=== PATIENT | female | born 1955 | race Caucasian/White ===

== ENCOUNTER 2016-09-22 13:57 | Emergency (ER) | payer OTHER ==
--- NOTE | 2016-09-22 17:04 | ED ---
Abdominal Pain/Female - HPI Summary HPI Summary: 60F presents with abdominal pain and fever for 4 days. She states that her symptoms started with a fever and then she develop diarrhea. She denies any nausea or vomiting. She denies anyone else being sick. She states that she has had a normal BM today and that she is feeling better. She denies anyone else being sick. She denies any previous abdominal surgeries. she has been on a course of antibiotics recently for a tooth ache but does not remember the name. She was seen at her PCP today and told that she has a low heart rate so was sent her for further work up. She also admits to occasionally blood in her urine but denies any frequency, flank pain, urgency, or dysuria. - History of Current Complaint Chief Complaint: EDAbdPain Stated Complaint: LOW HEART RATE , RIGHT ABD PAIN Time Seen by Provider: 09/22/16 16:38 Pain Intensity: 7 Allergies/Adverse Reactions: Allergies Allergy/AdvReac Type Severity Reaction Status Date / Time Penicillins Allergy Intermediate Hives Verified 09/22/16 13:58 Antihistamines, Allergy Anxiety Verified 09/22/16 17:17 Diphenhydramine-typ PMH/Surg Hx/FS Hx/Imm Hx Endocrine/Hematology History: Denies: Hx Anticoagulant Therapy, Hx Diabetes Respiratory History: Denies: Hx Asthma - Cancer History Cancer Type, Location and Year: cervical cancer (24 yrs ago) - Surgical History Surgery Procedure, Year, and Place: for cervical ca - not hysterectomy Infectious Disease History: Denies: History Other Infectious Disease, Traveled Outside the [place] in Last 30 Days - Family History Known Family History: Positive: Other - NONCONTIBUTORY - Social History Alcohol Use: Rare Substance Use Type: Reports: None Smoking Status (MU): Never Smoked Tobacco Review of Systems Negative: Fever Negative: Chest Pain Negative: Shortness Of Breath Positive: Abdominal Pain, Diarrhea. Negative: Vomiting, Nausea All Other Systems Reviewed And Are Negative: Yes Physical Exam Triage Information Reviewed: Yes Vital Signs On Initial Exam: Initial Vitals Temp Pulse Resp BP Pulse Ox 97.8 F 85 16 123/69 99 09/22/16 13:58 09/22/16 13:58 09/22/16 13:58 09/22/16 13:58 09/22/16 13:58 Vital Signs Reviewed: Yes Appearance: Positive: Well-Appearing Skin: Positive: Warm, Dry Head/Face: Positive: Normal Head/Face Inspection Eyes: Positive: Normal, EOMI, MATTHIEU, Conjunctiva Clear ENT: Positive: Normal ENT inspection, Pharynx normal, TMs normal Respiratory/Lung Sounds: Positive: Clear to Auscultation, Breath Sounds Present Cardiovascular: Positive: Normal, RRR Abdomen Description: Positive: Soft, Other: - mild diffusely tender abdomen Bowel Sounds: Positive: Present Diagnostics - Vital Signs Vital Signs Temp Pulse Resp BP Pulse Ox 09/22/16 15:52 97.6 F 86 16 108/62 99 09/22/16 13:58 97.8 F 85 16 123/69 99 - Laboratory Result Diagrams: 09/22/16 17:02 09/22/16 17:02 Lab Statement: Any lab studies that have been ordered have been reviewed, and results considered in the medical decision making process. - CT abd CT Interpretation: Positive (See Comments) - IMPRESSION: 1. DIFFUSE THICKENING OF THE WALL OF THE COLON MOST CONSISTENT WITH COLITIS. 2. THE APPENDIX IS NOT WELL-DEFINED ON THIS STUDY. 3. SMALL LOW SUSPICION CYSTIC LESION IN THE TAIL OF THE PANCREAS. RECOMMEND A FOLLOW-UP MRI OF THE PANCREAS WITHOUT AND WITH CONTRAST FOR FURTHER EVALUATION. CT Interpretation Completed By: Radiologist - EKG No standard instances Cardiac Rate: NL EKG Rhythm: Sinus Rhythm ST Segment: Normal Abdominal Pain Fem Course/Dx - Course Course Of Treatment: 60F presents with abdominal pain and fever for 4 days. She states that her symptoms started with a fever and then she develop diarrhea. She denies any nausea or vomiting. She denies anyone else being sick. She states that she has had a normal BM today and that she is feeling better. She denies anyone else being sick. She denies any previous abdominal surgeries. she has been on a course of antibiotics recently for a tooth ache but does not remember the name. on exam is diffusely tender abdomen. labs normal wbc and electrolytes. ct shows colitis. unable to give us a stool sample can use for c difficle. urine no infection but is blood. normally treat colitis with cipro but due to recent antiobitic use will add flagyl in case of c diff infection. ekg normal here. patient understands and agrees with plan. - Diagnoses Differential Diagnosis: Positive: Diverticulitis, Other - c difficile, colitis Provider Diagnoses: Colitis Discharge - Discharge Plan Condition: Good Disposition: HOME Prescriptions: Ciprofloxacin TAB* [Cipro 500 MG TAB*] 500 mg PO BID #19 tab Metronidazole [Flagyl 500 MG TAB] 500 mg PO BID #19 tab Patient Education Materials: Colitis (ED) Referrals: Jeromy Valle NP [Primary Care Provider] - Additional Instructions: Take ciprofloxacin twice a day for 10 days, first dose given in ED Take Flagyl twice a day for 10 days, first dose given in ED Return to ED if unable to keep anything down or any new or worsening symptoms
[2016-09-22] MEDS: NS 0.9% 1000 ML* 2,000 ML IV ONE ×2 (17:09→18:23)
[2016-09-22 17:14] LABS: Hematocrit 38 % (35-47); Hemoglobin 12.9 g/dl (12.0-16.0); Mean Corpuscular HGB Conc 34 g/dl (31-36); Mean Corpuscular Hemoglobin 31 pg (27-31); Mean Corpuscular Volume 92 fL (80-97); Mean Platelet Volume 8 um3 (7.4-10.4); Red Blood Count 4.12 10^6/ul (4.0-5.4); Red Cell Distribution Width 13 % (10.5-15); White Blood Count 6.8 10^3/ul (3.5-10.8)
[2016-09-22 17:18] LABS: Urine Bacteria Absent (Absent); Urine Bilirubin Negative (Negative); Urine Glucose Negative (Negative); Urine Nitrite Negative (Negative)
[2016-09-22 17:31] LABS: Albumin 4.2 g/dL (3.2-5.2); BUN/Creatinine Ratio 15.6 (8-20); Calcium 9.5 mg/dL (8.6-10.3); EGFR African American 122.6 (>60); EGFR Non-African American 95.3 (>60); Globulin 2.8 g/dL (2-4); Potassium 3.8 mmol/L (3.5-5.0); Total Bilirubin 0.4 mg/dL (0.2-1.0)
[2016-09-22] MEDS ORDERED: Iohexol 300* (CONTRAST) 10 ML SDV IV ONE (18:23)
--- NOTE | 2016-09-22 19:49 | RAD ---
INDICATION: Right lower quadrant abdominal pain, diarrhea and vomiting. COMPARISON: There are no prior studies available for comparison. TECHNIQUE: A CT scan of the abdomen and pelvis was performed with intravenous and oral contrast following intravenous injection of 72 ml of Omnipaque 300 nonionic contrast. Contiguous axial sections were obtained from the lung bases through the symphysis pubis. Images were reconstructed in the coronal and sagittal planes. FINDINGS: The lung bases are clear. No pleural effusion is present. The liver and spleen are normal in size without significant focal abnormality. No calcified gallstones are seen. There is a small cystic lesion present within the tail of the pancreas measuring 1.0 x 0.7 cm in size. No pancreatic ductal distention is seen. The kidneys and adrenal glands are normal in size. No hydronephrosis is seen. There is a small subcentimeter cyst in the lower pole of the right kidney. The aorta is normal in caliber and demonstrates homogeneous contrast opacification. No significant enlarged retroperitoneal lymph nodes are seen. The stomach, small and large bowel appear nondistended. There is diffuse thickening of the wall of the colon which is most prominent in the ascending and sigmoid colon regions most consistent with colitis. The appendix is not well-defined. The uterus is retroverted in position and normal in size although not well-defined on this study. No free intraperitoneal air or fluid is seen. No significant focal osseous abnormality is seen. IMPRESSION: 1. DIFFUSE THICKENING OF THE WALL OF THE COLON MOST CONSISTENT WITH COLITIS. 2. THE APPENDIX IS NOT WELL-DEFINED ON THIS STUDY. 3. SMALL LOW SUSPICION CYSTIC LESION IN THE TAIL OF THE PANCREAS. RECOMMEND A FOLLOW-UP MRI OF THE PANCREAS WITHOUT AND WITH CONTRAST FOR FURTHER EVALUATION.
[2016-09-22] MEDS ORDERED: metroNIDAZOLE TAB* 250 MG PO ONE (20:13)
[2016-09-22] MEDS ORDERED: Ciprofloxacin TAB* 500 MG PO ONE (20:13)
[2016-09-22 20:18] VITALS: BP 114/68
== END 2016-09-22 20:30 | disposition home or self-care (01) ==
LOC: ED 13:57
DX: K52.9 Noninfective gastroenteritis and colitis, unspecified (principal); R10.9 Unspecified abdominal pain
CPT/HCPCS: 36415; 74177; 80053; 81003; 81015; 83605; 83690; 85025; 86141; 86703; 93005; 96360; 99283; A9270-GY; Q9967

== ENCOUNTER 2016-11-02 17:31 | Emergency (ER) | payer OTHER ==
[2016-11-02 18:00] VITALS: BP 117/70
--- NOTE | 2016-11-02 18:33 | RAD ---
INDICATION: Right rib injury. COMPARISON: Comparison is made with a prior chest x-ray study from May 04, 2015. TECHNIQUE: 2 views of the right ribs and dual-energy PA views of the chest were obtained. FINDINGS: There is an old fracture of the right second rib. No acute fracture is seen. The heart is within normal limits in size. The lungs are clear. There is no evidence for pneumothorax or pleural effusion. IMPRESSION: NO EVIDENCE FOR ACUTE FRACTURE.
--- NOTE | 2016-11-02 22:13 | ED ---
Back Pain - HPI Summary HPI Summary: Patient presents to the with right rib pain after falling while hiking. She states she fell onto her right side and the right part of her rib hit a rock. She notes to 8/10 pain constant and throbbing. Denies SOB. Denies other symptoms including back pain, arm pain. Denies hitting her head or LOC. Has not tried to take any medications. - History of Current Complaint Hx Obtained From: Patient Hx Last Menstrual Period: n/a Onset/Duration: Sudden Onset Onset/Duration: Started Hours Ago Timing: Constant Back Pain Location: Is Discrete @ - right mid rib Severity Initially: Moderate Severity Currently: Moderate Pain Intensity: 5 Pain Scale Used: 0-10 Numeric Character: Aching Aggravating Symptom(s): Movement, Walking, Cough Alleviating Symptom(s): Rest, Position Associated Signs And Symptoms: Negative: Bladder Incontinence, Bowel Incontinence - Risk Factors AAA Risk Factors: Negative <Pauline Swan - Last Filed: 11/02/16 22:09> <Kathi Arellano - Last Filed: 11/02/16 22:35> - History of Current Complaint Chief Complaint: UCChestPain Stated Complaint: RIGHT RIB PAIN Time Seen by Provider: 11/02/16 18:20 - Allergies/Home Medications Allergies/Adverse Reactions: Allergies Allergy/AdvReac Type Severity Reaction Status Date / Time Penicillins Allergy Intermediate Hives Verified 11/02/16 18:00 Antihistamines, Allergy Anxiety Verified 11/02/16 18:00 Diphenhydramine-typ PMH/Surg Hx/FS Hx/Imm Hx Previously Healthy: Yes Endocrine/Hematology History: Denies: Hx Anticoagulant Therapy, Hx Diabetes Respiratory History: Denies: Hx Asthma - Cancer History Cancer Type, Location and Year: cervical cancer (24 yrs ago) - Surgical History Surgery Procedure, Year, and Place: for cervical ca - not hysterectomy - Immunization History Hx Pertussis Vaccination: No Immunizations Up to Date: Unable to Obtain/Confirm Infectious Disease History: No Infectious Disease History: Denies: History Other Infectious Disease, Traveled Outside the [place] in Last 30 Days - Family History Known Family History: Positive: Other - NONCONTIBUTORY - Social History Occupation: Employed Full-time Lives: With Family Alcohol Use: Rare Hx Substance Use: No Substance Use Type: Reports: None Hx Tobacco Use: No Smoking Status (MU): Never Smoked Tobacco <Pauline Swan - Last Filed: 11/02/16 22:09> Review of Systems Constitutional: Negative Negative: Fever, Chills, Fatigue Eyes: Negative Cardiovascular: Negative Respiratory: Negative Positive: Shortness Of Breath, Cough Gastrointestinal: Negative Positive: no symptoms reported, see HPI Positive: Arthralgia Skin: Negative Neurological: Negative Psychological: Normal All Other Systems Reviewed And Are Negative: Yes <Pauline Swan - Last Filed: 11/02/16 22:09> Physical Exam Triage Information Reviewed: Yes Vital Signs On Initial Exam: Initial Vitals Temp Pulse Resp BP Pulse Ox 98.3 F 84 16 117/70 100 11/02/16 17:55 11/02/16 17:55 11/02/16 17:55 11/02/16 17:55 11/02/16 17:55 Vital Signs Reviewed: Yes Appearance: Positive: Well-Appearing, Well-Nourished Skin: Positive: Warm, Skin Color Reflects Adequate Perfusion Head/Face: Positive: Normal Head/Face Inspection Neck: Positive: Supple, Nontender, No Lymphadenopathy Respiratory/Lung Sounds: Positive: Clear to Auscultation, Breath Sounds Present Cardiovascular: Positive: Normal, RRR, Pulses are Symmetrical in both Upper and Lower Extremities Musculoskeletal: Positive: Pain @ - right middle ribs Neurological: Positive: Sensory/Motor Intact, Alert, Oriented to Person Place, Time Psychiatric: Positive: Normal AVPU Assessment: Alert <Pauline Swan - Last Filed: 11/02/16 22:09> Vital Signs On Initial Exam: Initial Vitals Temp Pulse Resp BP Pulse Ox 98.3 F 84 16 117/70 100 11/02/16 17:55 11/02/16 17:55 11/02/16 17:55 11/02/16 17:55 11/02/16 17:55 <Kathi Arellano - Last Filed: 11/02/16 22:35> Diagnostics - Vital Signs Vital Signs Temp Pulse Resp BP Pulse Ox 11/02/16 17:55 98.3 F 84 16 117/70 100 <Pauline Swan - Last Filed: 11/02/16 22:09> - Vital Signs Vital Signs Temp Pulse Resp BP Pulse Ox 11/02/16 17:55 98.3 F 84 16 117/70 100 <Kathi Arellano Last Filed: 11/02/16 22:35> Back Pain Course/Dx - Course Course Of Treatment: Xray negative for rib fracture. She is given a note for work. Encouraged ibuprofen 600mg three times daily and other care parameters given. She is Ok with discharge and will return if any symptoms worsen. - Diagnoses Differential Diagnosis/HQI/PQRI: Positive: Strain, Sprain, Other - rib fracture <Pauline Swan - Last Filed: 11/02/16 22:09> <Kathi Arellano - Last Filed: 11/02/16 22:35> - Diagnoses Provider Diagnoses: Rib contusion Discharge <Pauline Swan - Last Filed: 11/02/16 22:09> <Kathi Arellano - Last Filed: 11/02/16 22:35> - Discharge Plan Condition: Stable Disposition: HOME Patient Education Materials: Rib Contusion (ED) Forms: *Work Release Referrals: Jeromy Valle FAMILY RESOURCE MANAGEMENT SPECIALIST [Primary Care Provider] - Additional Instructions: Ibuprofen 600mg three times daily Moist heat to the area several times per day Rest OFF work If symptoms worsen, return to the [facility] Attestation Statement User Type: Provider - I was available for consult. This patient was seen by the [facility]. The patient was not presented to, seen by, or examined by me. -Milagros <Kathi Arellano - Last Filed: 11/02/16 22:35>
== END 2016-11-02 18:56 | disposition home or self-care (01) ==
LOC: UCCORT 17:31
DX: S20.211A Contusion of right front wall of thorax, initial encounter (principal); W19.XXXA Unspecified fall, initial encounter; Y93.01 Activity, walking, marching and hiking; Y92.9 Unspecified place or not applicable; Z85.41 Personal history of malignant neoplasm of cervix uteri; Z88.0 Allergy status to penicillin
CPT/HCPCS: 99211; G0463

== ENCOUNTER 2017-08-24 08:52 | Emergency (ER) | payer OTHER ==
[2017-08-24 09:03] VITALS: BP 115/72
--- NOTE | 2017-08-24 09:46 | RAD ---
HISTORY: fall, pain wrist deformity COMPARISONS: None VIEWS: 3, Frontal, lateral, and oblique views of the left wrist FINDINGS: BONE DENSITY: Normal. BONES: There is a dorsally angulated fracture of the distal radial metaphysis. There is approximately 40 degrees of dorsal angulation. There is a nondisplaced fracture of the styloid process of the ulna. 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 ALIGNMENT: There is no dislocation. SOFT TISSUES: Unremarkable. OTHER FINDINGS: None. IMPRESSION: DORSALLY ANGULATED FRACTURE OF THE DISTAL RADIAL METAPHYSIS. NONDISPLACED FRACTURE OF THE STYLOID PROCESS OF THE ULNA.
--- NOTE | 2017-08-24 10:20 | UC ---
Upper Extremity HPI - HPI Summary HPI Summary: Patient is a 61-year-old female presenting to the after a FOOSH injury onto her left arm. 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 There is an obvious deformity noted in the wrist. Denies any erythema, ecchymosis or temperature changes, however endorses feeling of numbness and tingling into the thumb and first finger. She endorses a 2/10 pain. Aggravated with nothing and alleviated with nothing. 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 - History of Current Complaint Chief Complaint: UCUpperExtremity Stated Complaint: WRIST INJURY Time Seen by Provider: 08/24/17 09:53 Hx Obtained From: Patient Hx Last Menstrual Period: n/a ?: No Onset/Duration: Sudden Onset Severity Initially: Moderate Severity Currently: Moderate Pain Intensity: 2 Pain Scale Used: 0-10 Numeric Location Of Pain: Is Discrete @ - left wrist Character: Aching Aggravating Factor(s): Movement, Lifting, Flexion, Extension Alleviating Factor(s): Nothing Associated Signs And Symptoms: Positive: Numbness/Tingling Related History: Dominant Hand Right - Risk Factors Non-Orthopedic Risk Factor: Negative DVT Risk Factors: Negative Septic Arthritis Risk Factor: Negative Compartment Syndrome Risk Factors: Pain - Allergies/Home Medications Allergies/Adverse Reactions: Allergies Allergy/AdvReac Type Severity Reaction Status Date / Time Penicillins Allergy Hives Verified 08/24/17 09:05 antihistamines Allergy Mild See Comment Uncoded 08/24/17 09:05 PMH/Surg Hx/FS Hx/Imm Hx Previously Healthy: Yes Other History Of: Negative For: Anticoagulant Therapy - Surgical History Surgical History: Yes Surgery Procedure, Year, and Place: CERVIX - UTERINE - PARTIAL REMOVAL ( NOT A HYSTERECTOMY) - FOR BENIGN TISSUE THAT WAS SUSPICIOUS FOR CA - Family History Known Family History: Positive: Other - NONCONTIBUTORY - Social History Occupation: Employed Full-time Lives: With Family Alcohol Use: Rare Substance Use Type: Prescribed Smoking Status (MU): Never Smoked Tobacco - Immunization History Most Recent Influenza Vaccination: no Review of Systems Constitutional: Negative Skin: Negative Respiratory: Negative Cardiovascular: Negative Motor: Decreased ROM - d/t deformity Neurovascular: Decreased Sensation Musculoskeletal: Arthralgia Neurological: Negative Is Patient Immunocompromised?: No All Other Systems Reviewed And Are Negative: Yes Physical Exam Triage Information Reviewed: Yes Appearance: Well-Appearing, Well-Nourished Vital Signs: Initial Vital Signs Temp 98.2 F 08/24/17 08:59 Pulse 65 08/24/17 08:59 Resp 18 08/24/17 08:59 BP 115/72 08/24/17 08:59 Pulse Ox 100 08/24/17 08:59 Vital Signs Reviewed: Yes Eye Exam: Normal - Is Eyes: Positive: Conjunctiva Clear Respiratory Exam: Normal Respiratory: Positive: Chest non-tender Cardiovascular Exam: Normal Musculoskeletal: Positive: ROM Limited @ - left wrist Neurological Exam: Normal Neurological: Positive: Alert Psychological: Positive: Normal Response To Family Skin Exam: Normal Upper Extremity Course/Dx - Course Course Of Treatment: During the course of treatment, the patient is evaluated for left wrist deformity. Dorsally angulated fracture of the distal radial metaphysis. Vascularly intact, pulses +2 bilaterally. Endorses some numbness and tingling to the thumb and index finger. Called orthopedics at 10:05 AM who agrees to see patient immediately. Sling applied and patient is to drive herself directly over to the orthopedic clinic. - Differential Dx/Diagnosis Differential Diagnosis/HQI/PQRI: Fracture (Closed) Provider Diagnoses: Angulated fracture of radius Discharge - Sign-Out/Discharge Documenting (check all that apply): Patient Departure - Discharge Plan Condition: Stable Disposition: HOME Referrals: Jeromy Valle NP [Primary Care Provider] - Tr Meyers MD [Medical Doctor] - Additional Instructions: Please go directly to orthopedics - Billing Disposition and Condition Condition: STABLE Disposition: Home Attestation Statement User Type: Provider - I was available for consult. This patient was seen by the [facility]. The patient was not presented to, seen by, or examined by me. -Milagros
== END 2017-08-24 10:13 | disposition home or self-care (01) ==
LOC: UCEAST 08:52
DX: S52.92XA Unspecified fracture of left forearm, initial encounter for closed fracture (principal); X58.XXXA Exposure to other specified factors, initial encounter; Y92.9 Unspecified place or not applicable; Z88.0 Allergy status to penicillin; Z88.8 Allergy status to other drugs, medicaments and biological substances
CPT/HCPCS: 99202; G0463